=== PATIENT | male | born 1985 | race Two or more races ===

== ENCOUNTER 2016-09-22 14:04 | Emergency (ER) | payer MEDICAID ==
[~2016-09-22] VITALS: Ht 170.2 cm; Wt 65.8 kg
[2016-09-22 15:35] VITALS: BP 113/74
[2016-09-22] MEDS ORDERED: cefTRIAXone SOD 1,000 MG VL IM ONE (15:45)
[2016-09-22] MEDS ORDERED: KETOROLAC TROMETH 60MG/2ML VIAL IM ONE (15:45)
== END 2016-09-22 16:31 | disposition home or self-care (01) ==
LOC: ER 14:04
DX: N45.1 Epididymitis (principal); Z20.2 Contact with and (suspected) exposure to infections with a predominantly sexual mode of transmission
CPT/HCPCS: 76870; 96372; 99284; J0696; J1885

== ENCOUNTER 2016-12-01 14:37 | Emergency (ER) | payer MEDICAID ==
[~2016-12-01] VITALS: Ht 170.2 cm; Wt 63.5 kg
[2016-12-01 14:59] VITALS: BP 134/77
[2016-12-01] MEDS ORDERED: cefTRIAXone SOD 1,000 MG VL IM ONE (16:00)
== END 2016-12-01 16:34 | disposition home or self-care (01) ==
LOC: ER 14:37
DX: N34.2 Other urethritis (principal); Z20.2 Contact with and (suspected) exposure to infections with a predominantly sexual mode of transmission
CPT/HCPCS: 81002; 96372; 99283; J0696

== ENCOUNTER 2017-05-28 00:35 | Emergency (ER) | payer SELFPAY ==
[~2017-05-28] VITALS: Ht 170.2 cm; Wt 63.5 kg
[2017-05-28 00:53] VITALS: BP 122/71
[2017-05-28 02:58] LABS: Urine Bacteria FEW /hpf (None Seen); Urine Blood Negative /uL (Negative); Urine Mucus FEW (None Seen); Urine Specific Gravity 1.027 (1.001-1.035); Urine WBC 100 /hpf (0 - 3)
[2017-05-28] MEDS ORDERED: cefTRIAXone SOD 1,000 MG VL IM ONE (04:00)
== END 2017-05-28 05:25 | disposition home or self-care (01) ==
LOC: ER 00:36
DX: Z11.3 Encounter for screening for infections with a predominantly sexual mode of transmission (principal)
CPT/HCPCS: 81001; 87491; 87591; 96372; 99284; J0696

== ENCOUNTER 2018-01-20 15:23 | Emergency (ER) | payer MEDICAID ==
[~2018-01-20] VITALS: Ht 170.2 cm; Wt 65.3 kg
[2018-01-20 18:14] VITALS: BP 131/72
[2018-01-20 19:32] LABS: Urine Amorphous Crystal MOD /hpf (None Seen); Urine Bacteria FEW /hpf (None Seen); Urine Blood Negative /uL (Negative); Urine Mucus FEW (None Seen); Urine Specific Gravity 1.028 (1.001-1.035); Urine Sperm PRESENT /hpf (None Seen); Urine WBC 42 /hpf (0 - 3)
[2018-01-20] MEDS ORDERED: cefTRIAXone SOD 1,000 MG VL IM ONE (20:30)
[2018-01-20] MEDS ORDERED: AZITHROMYCIN 250 MG TAB PO ONE (20:30)
== END 2018-01-20 21:05 | disposition home or self-care (01) ==
LOC: ER 15:23
DX: N39.0 Urinary tract infection, site not specified (principal); Z20.2 Contact with and (suspected) exposure to infections with a predominantly sexual mode of transmission
CPT/HCPCS: 81001; 87491; 87591; 96372; 99283; J0696

== ENCOUNTER 2018-01-27 08:36 | Emergency (ER) | payer MEDICAID ==
[~2018-01-27] VITALS: Ht 170.2 cm; Wt 65.3 kg
[2018-01-27 08:41] VITALS: BP 104/47
== END 2018-01-27 09:46 | disposition home or self-care (01) ==
LOC: ER 08:36
DX: R04.0 Epistaxis (principal); R51 Headache; V49.9XXA Car occupant (driver) (passenger) injured in unspecified traffic accident, initial encounter; Y93.89 Activity, other specified; Y92.488 Other paved roadways as the place of occurrence of the external cause; Y99.8 Other external cause status
CPT/HCPCS: 70486